=== PATIENT | female | born 1960 | race Caucasian/White ===

== ENCOUNTER 2024-09-03 01:23 | Emergency (ER) | payer MEDICARE, SELFPAY ==
[2024-09-03 01:26] VITALS: BP 126/86; PULSE 82; RESP 16; TEMP 35.6; O2SAT 95; BMI 27.5
--- NOTE | 2024-09-03 01:38 | ED.GENADULT ---
HPI - General Adult General Chief complaint: Shortness of Breath/Dyspnea Stated complaint: poss pneumonia or bronchitis Time Seen by Provider: 09/03/24 01:32 Source: patient Mode of arrival: ambulatory Limitations: no limitations History of Present Illness HPI narrative: 64-year-old female, history of tobacco use disorder current smoker, presents today with cough. Symptoms have been going on for about a week. She has an appointment a day from now in the clinic, but woke up from her sleep with a coughing fit and felt short of breath. Patient does use an inhaler as needed. States that when inhaler will last her whole year. Unclear if she has had diagnosis of asthma or COPD. She denies fevers, changes in her appetite. She has no chest pain. Cough is dry and not productive. Normal energy level throughout the day. She does state that the coughing makes her feel short of breath. Related Data Previous Rx's ?Medication ?Instructions ?Recorded albuterol sulfate 90 mcg/actuation 1 inh inhalation QID PRN shortness 09/03/24 aerosol inhaler of breath or wheezing #8.5 grams azithromycin 250 mg tablet 500 mg PO DIRECTED #6 tabs 09/03/24 prednisone 20 mg tablet 40 mg (2 x 20 mg) PO DAILY 3 days 09/03/24 #6 tabs Allergies Allergy/AdvReac Type Severity Reaction Status Date / Time No Known Drug Allergies Allergy Verified 09/03/24 01:30 Review of Systems Status of ROS: Reports: 10 or more systems reviewed and unremarkable except as noted in History and below [facility] Social History service: No Exam Narrative: Exam Narrative: Well-nourished well-developed patient in no acute distress. Alert and oriented. Answers questions appropriately. Mood and affect are appropriate. Thoughts are goal oriented and rational. No tangential or magical thinking noted. Patient speaks in full sentences without needing to catch Her breath. she is a bit congested. Smells strongly of tobacco. HEENT: Normocephalic atraumatic. Pupils are equally round reactive to light. Extraocular muscles are intact. Conjunctivae are moist without any icterus noted. Moist mucous membranes. Posterior pharynx is normal. Neck is soft without any lymphadenopathy or thyromegaly. No masses are appreciated. Cardiovascular: Heart is regular rate and rhythm S1 and S2 are present without any murmurs. Lungs: Very mild wheezing, right greater than the left. No crackles, rales or rhonchi are appreciated. She takes deep breaths without discomfort. Abdomen: Soft and nontender . Extremities: Bilateral lower extremities are without edema. Skin: Well perfused without any obvious rashes. Const: Vital Signs, click to edit/add: Vital Signs - 24 hr 09/03/24 01:26 Temperature 96.0 F L Pulse Rate [Left P ulse Oximeter] 82 Respiratory Rate 16 Blood Pressure [Ri ght Upper Arm] 126/86 Pulse Oximetry 95 Oxygen Delivery Me thod Room Air Course Course ED Course: Patient received a DuoNeb while she was here with symptom improvement Vital Signs Vital signs: Initial Vital Signs Temperature 96.0 F L 09/03/24 01:26 Temperature Source Temporal Artery Scan 09/03/24 01:26 Pulse Rate 82 09/03/24 01:26 Pulse Rhythm Regular 09/03/24 01:26 Respiratory Rate 16 09/03/24 01:26 Blood Pressure 126/86 09/03/24 01:26 Blood Pressure Mean 99 09/03/24 01:26 Blood Pressure Position Sitting 09/03/24 01:26 Pulse Oximetry 95 09/03/24 01:26 Oxygen Delivery Method Room Air 09/03/24 01:26 Vital Signs Temperature 96.0 F L 09/03/24 01:26 Pulse Rate 82 09/03/24 01:26 Respiratory Rate 16 09/03/24 01:26 Blood Pressure 126/86 09/03/24 01:26 Pulse Oximetry 95 09/03/24 01:26 Oxygen Delivery Method Room Air 09/03/24 01:26 Temperature 96.0 F L 09/03/24 01:26 Pulse Rate 82 09/03/24 01:26 Respiratory Rate 16 09/03/24 01:26 Blood Pressure 126/86 09/03/24 01:26 Pulse Oximetry 95 09/03/24 01:26 Oxygen Delivery Method Room Air 09/03/24 01:26 Medical Decision Making MDM Narrative Medical decision making narrative: 64-year-old female, long-term tobacco use presenting with cough and wheezing. Patient will be sent home with an albuterol inhaler refill, prednisone and azithromycin. Recommend follow-up with primary care as scheduled On 09/04. Discharge Plan Discharge Clinical Impression: Cough, Bilateral wheezing Patient Disposition: Home, Self-Care Condition: Stable Additional Instructions: take all steroid as prescribed- Can take 1st dose after you bead picker in the clinic this morning. Your albuterol inhaler will also be filled. Lastly, your also be prescribed an antibiotic which you can start this coming morning. Recommend you keep your appointment that is already scheduled. Prescriptions: New prednisone 20 mg tablet 40 mg PO DAILY 3 Days Qty: 6 0RF azithromycin 250 mg tablet 500 mg PO DIRECTED Qty: 6 0RF Taper: Z-WADE 500 mg Q24H for 1 Day and 0 Hour 250 mg Q24H for 4 Days and 0 Hour Rx Instructions: For 250 mg dose pack: take 500 mg today (day 1), then 250 mg for 4 days (days 2-5) albuterol sulfate 90 mcg/actuation HFA aerosol inhaler 1 inh inhalation QID PRN (Reason: shortness of breath or wheezing) Qty: 8.5 0RF Follow Up/Referrals: Dima Jimenez, MEDARDO [Primary Care Provider] - Stand Alone Forms: [employer] Info Instructions
[2024-09-03] MEDS: predniSONE 10 MG TABLET 50 MG PO (01:55)
[2024-09-03] MEDS: IPRAT-ALBUT 0.5-2.5 MG/3 ML NEB 1 NEB IH (01:56)
[2024-09-03 02:14] LABS: PCR FLU A Negative PCR FLU A (Negative); PCR FLU B Negative PCR FLU B (Negative); PCR RSV Negative PCR RSV (Negative); SARS PCR* Negative SARS-CoV-2 (Negative)
[2024-09-03 02:31] VITALS: PULSE 90; RESP 20; O2SAT 97
== END 2024-09-03 02:33 | disposition home or self-care (01) ==
LOC: ED 01:56
PROVIDERS: Emergency Provider Family Medicine; PCP Family Medicine
DX: R06.2 Wheezing (principal)
CPT/HCPCS: 87631; 99283; 99284; J7512

== ENCOUNTER 2024-09-27 09:29 | Emergency (ER) | payer MEDICARE, SELFPAY ==
--- OUTSIDE RECORDS SUMMARY | 2024-09-27 09:31 | XMS_ITS | Clinical Summary ---
Author Organization [employer] [facility] Address [place], [place] [address] Care Team Providers Care Plate Washer Name Role Phone JamestelElieser MD Primary Care Provider + Allergies Active Allergy Reactions Criticality Noted Date Comments Amoxicillin Dizziness 11/03/2021 Reported per patient (see enc dated 11/03/21) Medications MULTIVITAMIN TAB take 1 tablet by oral route once daily with food 0 9 Active guaFENesin SR (MUCINEX) 1,200 mg [id number] :Bronchitis Take 1 tablet by mouth every 12 hours if needed for Expectoration. 14 tablet 7 Active albuterol HFA (PRO-AIR; VENTOLIN; PROVENTIL) 90 mcg/actuation inhalerIndicati ons:Wheeze Inhale 2 Puffs by mouth every 4 hours if needed for Shortness Of Breath. 1 Each 1 4 Active aspirin (ECOTRIN) 81 mg enteric coated tablet Take 81 mg by mouth once daily with a meal. Active nicotine 21 mg/24 hr (NICODERM; HABITROL) 21 mg/24 hr patchIndication s:Encounter for smoking cessation counseling Apply 1 Patch on dry, clean, hairless skin once daily. 14 Patch 3 4 Active nicotine 14 mg/24 hr (NICODERM; HABITROL) 14 mg/24 hr patchIndication s:Tobacco use disorder Apply 1 Patch on dry, clean, hairless skin once daily. 14 Patch 3 4 Active Active Problems Problem Noted Date Diagnosed Date Bronchitis 05/25/2017 Numbness and tingling in both hands 05/21/2017 Edema 05/21/2017 Overweight 05/21/2017 Hyperlipidemia LDL goal < 130 12/25/2011 Screen for colon cancer 10/28/2010 Overview (10/28/2010): Colonoscopy 09/2010 normal repeat in 10 years LUMBAGO 07/01/2001 RASH, OTH NONSPECIFIC SKIN ERUPTION 10/03/2000 COUGH 10/03/2000 CYST, SEBACEOUS 10/03/2000 TOBACCO USE 01/12/2000 Encounters Date Type Department Care Team Description 09/27/2024 Nurse Triage [facility] [address] [place] [address] Elieser Nielsen MD Breathing Problem 09/22/2024 Telephone [facility] [address] [place] [address] Elieser Nielsen MD FYI (Medicare Wellness Visit) 09/18/2024 Telephone [facility] [address] [place] [address] Elieser Nielsen MD Medication Management (Nicotine Patches ) 09/04/2024 Telephone [facility] [address] [place] [address] Elieser Nielsen MD Questions (Nicotine patch ) 07/02/2024 1:15 PM CDT Office Visit [facility] [address] [place] [address] Elieser Nielsen MD Concerns (Small bumps in between brows/Wants urethra stretched out); Immunization/Injectio n 07/02/2024 Travel from Last 3 Months Immunizations Name Administration Dates Next Due AMB Influenza, IIV3 (Age >=3 years)(Flu Clinic Only) 06/17/2013,06/10/2012 AMB Influenza, IIV4 PF (=>6 mos Flulaval,Fluzone Fluarix)(Flu Clinic Only) 06/25/2015,06/17/2014 Influenza, IIV3 (Age >=3 years) 07/26/2021,06/23 Influenza, IIV4 06/12/2023,,06/10/2019,2017 Influenza, IIV4 (=>6mos) MDV 05/21/2017 Influenza, Inactivated IIV3 (Age 65+ Years) Preserv Free 07/02/2024 Influenza,CCIIV4 PRESERV FREE 07/24/2022 Pneumococcal Conj 20-valent (Prevnar 20) 08/23/2022 Pneumococcal Poly,23-Valent (Pneumovax) 05/21/2017 Td (Age >=7 Years) 06/02/2005 Tdap 02/03/2016 Zoster (Shingrix-RZV, recombinant) 10/16/2018, Zoster (Zostavax-ZVL, live) 04/13/2015 Family History Medical History Relation Name Comments Alcoholism Father Cancer Father lung cancer, sm oker Cirrhosis Father Other Mother car accident Cancer-breast Paternal Aunt age 36 Other Sister 1 lupus, fibromya lgia Alcoholism Sister 2 Alcoholism Sister 3 Relation Name Status Comments Father (Age 56) Mother (Age 21) car accide nt Paternal Aunt Sister 1 Sister 2 Sister 3 Social History Tobacco Use Types Packs/Day Years Used Date Smoking Tobacco: Every Day Cigarettes 1 43 Started: 08/23/1973; Last attempted to quit: 08/23/2016 Smokeless Tobacco: Never Tobacco Cessation:Ready to Q uit: No; Counseling Given: Yes Comments:1 ppd. Alcohol Use Standard Drinks/Week Comments No 0 (1 standard drink = 0.6 oz pur e alcohol) Alcoholic Drinks/day: 0 [facility] Utilities Answer Date Recorded Do you have trouble paying f or utilities (for example, heat, electricity, water, phone)? Yes 07/02/2024 PHQ-2 Answer Date Recorded PHQ-2 TOTAL SCORE 0 07/02/2024 Social Connections Answer Date Recorded Do you often feel lonely or isolated from those around you? 0 07/02/2024 Financial Resource Strain Answer Date R ecorded Difficulty of Paying Living Expenses 3 07/02/2024 Difficulty of Paying Living Expenses Not on file 07/02/2024 Food Insecurity Answer Date Recorded Do you worry your food will run out before you are able to buy more? 1 07/02/2024 Transportation Needs Answer Date Record ed Does lack of transportation keep you from medica l appointments? 1 07/02/2024 Does lack of transportation keep you from work, meetings or getting things that you need? 1 07/02/2024 Housing Stability Answer Date Recorded What is your housing situation today? 1 07/02/2024 Comments No Sex and Gender Information Value Date Recorded Sex Assigned at Not on file Legal Sex Female 5:21 AM [employer] WORK[employer] Gender Identity Not on file Sexual Orientation Not on file Occupation Industry Job Start Date Job End Date [employer] Not on file Not on file Not on file Obstetrics History Last Filed Vital Signs Vital Sign Reading Time Taken Comments Blood Pressure 139/80 07/02/2024 1:13 PM CDT Pulse 100 07/02/2024 1:13 PM CDT Temperature 37.1 C (98.8 F) 09/20/2018 10:44 AM [employer] WORK[employer] Respiratory Rate 20 05/25/2017 8:11 AM CDT Oxygen Saturation 97% 07/02/2024 1:13 PM CDT Inhaled Oxygen Concentration - - Weight 73.2 kg (161 lb 6.4 oz) 07/02/2024 1:13 P M CDT Height 158.7 cm (5' 2.48) 07/02/2024 1:13 PM CD T Body Mass Index 29.07 07/02/2024 1:13 PM CDT Plan of Treatment Upcoming Encounters Date Type Department Care Team (Late st Contact Info) Description 11/27/2024 12:30 PM [employer] WORK[employer] Office Visit [facility] [address] [place] [address] Wagner James MD [address] [place] [address] Health Maintenance Due Date Last Done Comments Low Dose CT (for lung CA) ag e 50-80 2009 Mammogram for age 45-75 06/10/2020 06/10/20, 05/20/2018, 05/18/2017, Additional history exists Colonoscopy through age 75 10/28/2020 10/28/2010, DEXA/DXA scan for age 65+ 2024 Medicare Wellness for age 65+ 2024 COVID-19 vaccine series (2023- season) 2024 BMI (ht and wt on same day) for age 18+ 07/02/2025 07/02/2024, 06/12/2023, 08/23/2022, Additional history exists Depression screening for age 12+ 07/02/2025 07/02/2024, 08/23/2022, 06/26/2018, Additional history exists Tetanus booster 02/02/2026 02/03/2016, 06/02/2005 Lipids for age 45-75 08/23/2027 08/23/2022, 06/26/2018, 05/21/2017, Additional history exists RSV vaccine for adults or (1 - 1-dose 75+ series) 2034 Tdap Completed 02/03/2016 Hepatitis C screening for ag e 18-79 Completed 06/26/2018 Zoster (shingles) series for age 50+ Completed 10/16/2018, 06/24/2018, 04/13/2015 HIV for age 15-65 Completed 08/23/2022 Pneumococcal series for age 50+ Completed , 05/21/2017 Influenza for age 65+ Completed 07/02/2024 , 06/12/2023, 07/24/2022, Additional history exists Procedures Procedure Name Priority Date/Time Associated Diagnosis Comments ANTI HIV 1/2 Routine 08/23/2022 9:34 AM [employer] WORKER Screening for HIV (human immunodeficiency virus) LIPID PANEL W REFLEX MEASURED LDL Routine 08/23/2022 9:34 AM [employer] FI[employer] WORKER Lipid screening XR MAMMO BILAT SCREENING Routine 06/10/2019 10:06 AM CDT Visit for screening mammogram ANTI HCV Routine 06/26/2018 7:40 AM CDT Need for hepatitis C screening test from Last 3 Months or Most Recently Relevant to Health Maintenance Results * (ABNORMAL) LIPID PANEL W REFLEX MEASURED LDL (08/23/2022 9:34 AM [employer] FIELD WORKER) CHOLESTEROL,TOTAL 271(H) 100 - 199 mg/dL 08/25/2022 1:42 AM AREA FIELD WORKER [facility] TRIGLYCERIDES 203(H) <150 mg/dL 08/25/2022 1:42 AM AREA FIELD WORKER [facility] HDL CHOLESTEROL 55 >40 mg/dL 2 1:42 AM AREA FIELD WORKER [facility] NON-HDL CHOLESTEROL 216(H) <145 mg/dl 08/25/2022 1:42 AM [employer] FIELD WORKER [facility] CHOL/HDL RATIO 4.93(H) <4.50 08/25/2022 1:42 AM [employer] FIELD WORKER [facility] LDL CHOLESTEROL 175(H) <=130 mg/dL 08/25/2022 1:42 AM ARE[employer] FIELD WORKER [facility] VLDL CHOLESTEROL 41(H) <=30 mg/dL 08/25/2022 1:42 AM [employer] FIELD WORKER [facility] PROVIDER ORDERED STATUS RANDOM 08/25/2022 1:42 AM [employer] FIELD WORKER [facility] Blood BLOOD SPECIMEN / Unknown Venipuncture / Unknown 08/23/2022 9:34 AM AREA FIELD WORKER 08/23/2022 9:35 AM [employer] FIELD WORKER Laly Bowles MD CHEMISTRY Final Result [facility] [address] [place] [address], [place] * ANTI HIV 1/2 [[id number]] (08/23/2022 9:34 AM AREA FIELD WORKER) HIV-1/HIV-2 ANTIBODY Non-Reacti ve Non-Reacti ve 08/25/2022 2:03 AM ARE[employer] FIELD WORKER [facility] Comment:HIV-1 p24 and HIV-1/ HIV-2 Ab not detected. Blood BLOOD SPECIMEN / Unknown Venipuncture / Unknown 08/23/2022 9:34 AM AREA FIELD WORKER 08/23/2022 9:35 AM [employer] FIELD WORKER Laly Bowles MD SEND OUTS Final Result [facility] [address] [place] [address], [place] * XR MAMMO BILAT SCREENING (06/10/2019 10:06 AM CDT) Anatomical Region Laterality Modality BREASTS, Breast Left, Breast Right Bilateral Mammography Impressions 06/10/2019 12:37 PM CDT There is no radiographic evidence for malignancy. Recommend annual mammograms. A lay language report of this examination will be provided to the patient. MAMMOGRAM ASSESSMENT: ACR 1 Negative Narrative 06/10/2019 12:37 PM CDT XR MAMMO BILAT SCREENING [[id number]] CLINICAL HISTORY: This is an asymptomatic 59 y.o. patient. INDICATION FOR EXAM: Mammogram Screening. TECHNIQUE: CC & MLO views were obtained. This digital study was evaluated with the assistance of Computer-Aided Detection. COMPARISON FILM: Yes 05/20/18 [facility] 05/18/17 [facility] FINDINGS: Mammographically, the breast tissue has scattered fibroglandular densities. There are no dominant masses, suspicious micro calcifications or areas of architectural distortion. Laly Bowles MD MAMMO Final Result * ANTI HCV (06/26/2018 7:40 AM CDT) HEPATITIS C ANTIBODY Non-React antonio Non-React antonio 06/26/2018 2:[address] [facility] Comment:Antibodies to HCV no t detected; does not exclude the possibility of exposure to HCV. Blood BLOOD SPECIMEN / Unknown Venipuncture / Unknown 06/26/2018 7:40 AM CDT 06/26/2018 8:18 AM CDT Laly Bowles MD SEND OUTS Final Result [facility] [address] [place] [address], [place] from Last 3 Months or Most Recently Relevant to Health Maintenance Insurance [facility] MR Care Teams Plate Washer Relationship Specialty Start Date End Date Votel, Elieser Vaughan MD [address] [place] [address] PCP - General Family Practice 09/04/24
[2024-09-27 09:44] VITALS: BP 124/76; PULSE 89; TEMP 36.7; O2SAT 95; BMI 30.1
--- NOTE | 2024-09-27 09:52 | ED.GENADULT ---
HPI - General Adult General Time Seen by Provider: 10:36 Date Seen: 09/27/24 Chief complaint: Shortness of Breath/Dyspnea Stated complaint: Chest pressure, sob Time Seen by Provider: 09/27/24 09:51 Source: patient, RN notes reviewed and old records reviewed Mode of arrival: ambulatory Limitations: no limitations History of Present Illness HPI narrative: This 64-year-old female is coming in with concern of worsening respiratory symptoms. She is feeling tightness and wheezing in her chest again. This is not chest pain, does not feel like this is underlying cardiac pain at all. She is started coughing again. She was in the ER on 09/03/2020 for and was given a Z-Kevin and prednisone. She did feel better after that. She is starting to feel more short of breath about a week ago, is using an albuterol inhaler. She quit smoking after this last visit on September 03, had smoked for 51 years. There are no fevers. Did review that ED note, patient was wheezy, did receive a DuoNeb and did feel better after that. Related Data Previous Rx's ?Medication ?Instructions ?Recorded albuterol sulfate 90 mcg/actuation 1 inh inhalation QID PRN shortness 09/03/24 aerosol inhaler of breath or wheezing #8.5 grams ipratropium 20 mcg-albuterol 100 1 puff inhalation QID #4 grams 09/27/24 mcg/actuation mist for inhalation (Combivent Respimat) prednisone 20 mg tablet 20 mg PO BID #14 tabs 09/27/24 Allergies Allergy/AdvReac Type Severity Reaction Status Date / Time No Known Drug Allergies Allergy Verified 09/03/24 01:30 Review of Systems Status of ROS: Reports: 6 or more systems reviewed and unremarkable except as noted in History and below PFSH PFS Social History Smoking Status: Former smoker service: No Exam Const: Vital Signs, click to edit/add: Vital Signs - 24 hr 09/27/24 09:44 Temperature 98.1 F Pulse Rate [Pulse Oximeter] 89 Blood Pressure [Ri ght Upper Arm] 124/76 Pulse Oximetry 95 Oxygen Delivery Me thod Room Air Jacquelyn is a 64-year-old female that is alert, interactive, no apparent distress. She can speak in complete sentences, speech is normal, no hoarseness. Sclera clear, conjugate gaze. Neck is supple, no adenopathy. Cough does sound harsh. Lungs with diminished breath sounds, prolonged expiratory phase. Some occasional end-expiratory wheezing heard at the bases. CV regular rate and rhythm, no murmur, normal S1-S2, no S3-S4. Documenting provider has reviewed patient's vital signs: yes Course Course ED Course: Will obtain a chest x-ray just to ensure no underlying pneumonia and have a basic look at the architecture via chest x-ray on this patient. Nursing staff did get an EKG on arrival, this looks normal. Have reviewed with this patient given her smoking history and presentation, she likely has underlying COPD but ultimately needs formal pulmonary function testing to diagnose this. The pulmonary function testing is not something that is done in the ER, she is absolutely going to need to follow up outpatient. Reevaluation(s) Time of Reevaluation #1: 11:30 Reevaluation #1: Have spent time trying to discuss with patient that she does not have any evidence of infection in her lungs, chest x-ray is normal, provided her a copy of the report. She seems to be struggling with the concept that I suspect she has underlying damage from smoking which we would term emphysema which is 1 of the diagnoses in a category called COPD. We discussed long-term smoker's and what can happen with the lungs. We also reviewed that when people quit smoking, can experience more coughing and sputum production as the cilia in the respiratory tree start functioning. My assumption is that she probably has a component of emphysema but cannot to be diagnosed with out pulmonary function testing. I do think she has some underlying irritation from the recent viral issue, will prescribe her another course of steroids but she does not need antibiotics. I do think that she should go on a Combivent inhaler and then can use her albuterol p.r.n.. She should follow up outpatient to get scheduled for pulmonary function testing. Will have respiratory therapy chat with her briefly as well. Re-evaluation of her lungs reveals improved aeration, no wheezing. Vital Signs Vital signs: Initial Vital Signs Temperature 98.1 F 09/27/24 09:44 Temperature Source Temporal Artery Scan 09/27/24 09:44 Pulse Rate 89 09/27/24 09:44 Blood Pressure 124/76 09/27/24 09:44 Blood Pressure Mean 92 09/27/24 09:44 Blood Pressure Position Sitting 09/27/24 09:44 Pulse Oximetry 95 09/27/24 09:44 Oxygen Delivery Method Room Air 09/27/24 09:44 Vital Signs Temperature 98.1 F 09/27/24 09:44 Pulse Rate 89 09/27/24 09:44 Blood Pressure 124/76 09/27/24 09:44 Pulse Oximetry 95 09/27/24 09:44 Oxygen Delivery Method Room Air 09/27/24 09:44 Temperature 98.1 F 09/27/24 09:44 Pulse Rate 89 09/27/24 09:44 Blood Pressure 124/76 09/27/24 09:44 Pulse Oximetry 95 09/27/24 09:44 Oxygen Delivery Method Room Air 09/27/24 09:44 Medications Administered Medications: Discontinued Medications Generic Name Dose Route Start Last Admin Trade Name Freq PRN Reason Stop Dose Admin Albuterol/Ipratropium 1 neb 09/27/24 10:41 09/27/24 10:51 Iprat-Albut 0.5-2.5 Mg/3 Ml Neb 09/27/24 10:42 1 neb ONCE ONE Administration Medical Decision Making Imaging Data Chest x-ray: Attestation: I have reviewed the pertinent imaging results. My impression: No acute pathology on my preliminary review. Radiologist's impression: Patient: JACQUELYN CHILD Facility:?[facility] Patient ID:?[id number] Site Patient ID:?[id number]. Site :?[id number] Study:?XRay-Chest PCXR-09/27/2024 10:02:03 AM Ordering Physician:Dale Salazar Final Report: Indication: : Shortness of breath TECHNIQUE: Single-view chest. FINDINGS: The lungs are clear. The heart, mediastinum and pulmonary vessels are of normal size. There is no evidence of pleural disease. IMPRESSION: Negative chest. Dictated by Jing Gardner MD @ 09/27/2024 10:45:32 AM (Electronic Signature) ECG Data Attestation: I personally reviewed and interpreted this ECG as follows: (Sinus rhythm, 78 beats per minute, some artifact in V4. Q-waves V1 V2, flipped T-waves V1 only, no ST segment changes.) Prior ECG tracings: not available for review Discharge Plan Discharge Clinical Impression: Wheezing Cough Qualifiers: Cough type: acute Qualified Code(s): R05.1 - Acute cough Patient Disposition: Home, Self-Care Condition: Stable Instructions: How to Use a Metered-Dose Inhaler (ED) Additional Instructions: Take prednisone as prescribed, this will help settle any inflammation in the lungs. There is no evidence of infection requiring antibiotics. Will start you on Combivent inhaler, this has 2 medicines in it and can help improve breathing with opening the airways. Can still use your albuterol inhaler if needed in between. You do need to follow-up with your primary care provider within the next few weeks for recheck, highly encourage formal pulmonary function test to be scheduled. Activity Level: Activity as Tolerated Prescriptions: New prednisone 20 mg tablet 20 mg PO BID Qty: 14 0RF Combivent Respimat 20-100 mcg/actuation mist 1 puff inhalation QID Qty: 4 0RF Rx Instructions: space evenly during waking hours No Action albuterol sulfate 90 mcg/actuation HFA aerosol inhaler 1 inh inhalation QID PRN (Reason: shortness of breath or wheezing) Qty: 8.5 0RF Follow Up/Referrals: Elieser Nielsen MD [Primary Care Provider] - Stand Alone Forms: [employer] Info Instructions
--- NOTE | 2024-09-27 09:55 | CRLHL7_ITS ---
For Patients: As a result of the Century Cures Act, medical imaging exams and procedure reports are released immediately into your electronic medical record. You may view this report before your referring provider. If you have questions, please contact your health care provider. Indication: : Shortness of breath TECHNIQUE: Single-view chest. FINDINGS: The lungs are clear. The heart, mediastinum and pulmonary vessels are of normal size. There is no evidence of pleural disease. IMPRESSION: Negative chest. Dictated by Jing Gardner MD @ 09/27/2024 10:45:32 AM (Electronically Signed)
[2024-09-27] MEDS: IPRAT-ALBUT 0.5-2.5 MG/3 ML NEB 1 NEB IH (10:51)
--- OUTSIDE RECORDS SUMMARY | 2024-09-27 10:51 | XMS_ITS | Clinical Summary ---
Author Organization [employer] Address [place], [place] [address] Care Team Providers Care Employment Clerk Name Role Phone JamestelElieser MD Primary Care Provider + Allergies Active Allergy Reactions Criticality Noted Date Comments Amoxicillin Dizziness 11/03/2021 Reported per patient (see enc dated 11/03/21) Medications MULTIVITAMIN TAB take 1 tablet by oral route once daily with food 0 9 Active guaFENesin SR (MUCINEX) 1,200 mg [id number] :Bronchitis Take 1 tablet by mouth every [...] Department Care Team Description 09/27/2024 Nurse Triage [facility] [address] [place] [address] Elieser Nielsen MD Breathing Problem 09/22/2024 Telephone [facility] [address] [place] [address] Elieser Nielsen MD FYI (Medicare Wellness Visit) 09/18/2024 Telephone [facility] [address] [place] [address] Elieser Nielsen MD Medication Management (Nicotine Patches ) 09/04/2024 Telephone [facility] [address] [place] [address] Elieser Nielsen MD Questions (Nicotine patch ) 07/02/2024 1:15 PM CDT Office Visit [facility] [address] [place] [address] Elieser Nielsen MD Concerns (Small bumps in [...] oz pur e alcohol) Alcoholic Drinks/day: 0 [facility] Utilities Answer Date Recorded Do you [...] on file Legal Sex Female 5:21 AM PRINT LINE OPERATOR Gender Identity Not on file Sexual Orientation Not on file Occupation Industry Job Start Date Job End Date [employer] Not on file Not on file Not on file Obstetrics History Last Filed Vital Signs Vital Sign Reading Time Taken Comments Blood Pressure 139/80 07/02/2024 1:13 PM CDT Pulse 100 07/02/2024 1:13 PM CDT Temperature 37.1 C (98.8 F) 09/20/2018 10:44 AM PRINT LINE OPERATOR Respiratory Rate 20 05/25/2017 8:11 AM CDT [...] st Contact Info) Description 11/27/2024 12:30 PM PRINT LINE OPERATOR Office Visit [facility] [address] [place] [address] Wagner James MD [address] [place] [address] Health Maintenance Due Date Last Done Comments [...] ANTI HIV 1/2 Routine 08/23/2022 9:34 AM PRINT LINE OPERATOR Screening for HIV (human immunodeficiency virus) LIPID PANEL W REFLEX MEASURED LDL Routine 08/23/2022 9:34 AM PRINT LINE OPERATOR Lipid screening XR MAMMO BILAT SCREENING Routine 06/10/2019 10:06 AM CDT Visit for screening mammogram ANTI HCV Routine 06/26/2018 7:40 AM CDT Need for hepatitis C screening test from Last 3 Months or Most Recently Relevant to Health Maintenance Results * (ABNORMAL) LIPID PANEL W REFLEX MEASURED LDL (08/23/2022 9:34 AM PRINT LINE OPERATOR) CHOLESTEROL,TOTAL 271(H) 100 - 199 mg/dL 08/25/2022 1:42 AM PRINT LINE OPERATOR [facility] TRAL LAB[facility]ORY TRIGLYCERIDES 203(H) <150 mg/dL 08/25/2022 1:42 AM PRINT LINE OPERATOR [facility] HDL CHOLESTEROL 55 >40 mg/dL 2 1:42 AM PRINT LINE OPERATOR [facility] NON-HDL CHOLESTEROL 216(H) <145 mg/dl 08/25/2022 1:42 AM PRINT LINE OPERATOR [facility] CHOL/HDL RATIO 4.93(H) <4.50 08/25/2022 1:42 AM PRINT LINE OPERATOR [facility] LDL CHOLESTEROL 175(H) <=130 mg/dL 08/25/2022 1:42 AM PRINT LINE OPERATOR [facility] VLDL CHOLESTEROL 41(H) <=30 mg/dL 08/25/2022 1:42 AM PRINT LINE OPERATOR [facility] TR[facility] PROVIDER ORDERED STATUS RANDOM 08/25/2022 1:42 AM PRINT LINE OPERATOR [facility] Blood BLOOD SPECIMEN / Unknown Venipuncture / Unknown 08/23/2022 9:34 AM PRINT LINE OPERATOR 08/23/2022 9:35 AM PRINT LINE OPERATOR Laly Bowles MD CHEMISTRY Final Result [facility] [address] [place] [address], [place] * ANTI HIV 1/2 [[id number]] (08/23/2022 9:34 AM PRINT LINE OPERATOR) HIV-1/HIV-2 ANTIBODY Non-Reacti ve Non-Reacti ve 08/25/2022 2:03 AM PRINT LINE OPERATOR [facility] Comment:HIV-1 p24 and HIV-1/ HIV-2 Ab not detected. Blood BLOOD SPECIMEN / Unknown Venipuncture / Unknown 08/23/2022 9:34 AM PRINT LINE OPERATOR 08/23/2022 9:35 AM PRINT LINE OPERATOR Laly Bowles MD SEND OUTS Final Result [facility] [address] [place] [address], [place] * XR MAMMO BILAT SCREENING (06/10/2019 10:06 AM CDT) Anatomical Region Laterality Modality BREASTS, Breast Left, Breast Right Bilateral Mammography Impressions 06/10/2019 12:37 PM CDT There is no radiographic evidence for malignancy. Recommend annual mammograms. A lay language report of this examination will be provided to the patient. MAMMOGRAM ASSESSMENT: ACR 1 Negative Narrative 06/10/2019 12:37 PM CDT XR MAMMO BILAT SCREENING [[id number]] CLINICAL HISTORY: This is an asymptomatic 59 y.o. patient. INDICATION FOR EXAM: Mammogram Screening. TECHNIQUE: CC & MLO views were obtained. This digital study was evaluated with the assistance of Computer-Aided Detection. COMPARISON FILM: Yes 05/20/18 [facility] 05/18/17 [facility] FINDINGS: Mammographically, the breast tissue has scattered fibroglandular densities. There are no dominant masses, suspicious micro calcifications or areas of architectural distortion. Laly Bowles MD MAMMO Final Result * ANTI HCV (06/26/2018 7:40 AM CDT) HEPATITIS C ANTIBODY Non-React antonio Non-React antonio 06/26/2018 2:06 PM CDT [facility] Comment:Antibodies to HCV no t detected; does not exclude the possibility of exposure to HCV. Blood BLOOD SPECIMEN / Unknown Venipuncture / Unknown 06/26/2018 7:40 AM CDT 06/26/2018 8:18 AM CDT Laly Bowles MD SEND OUTS Final Result [facility] [address] [place] [address], [place] from Last 3 Months or Most Recently Relevant to Health Maintenance Insurance [facility] MR Care Teams Employment Clerk Relationship Specialty Start Date End Date Votel, Elieser Vaughan MD [address] [place] [address] PCP - General Family Practice 09/04/24
== END 2024-09-27 11:56 | disposition home or self-care (01) ==
PROVIDERS: Emergency Provider Family Medicine; PCP Family Medicine
DX: R05.1 Acute cough (principal)
CPT/HCPCS: 71045; 93005; 99284

== ENCOUNTER 2024-10-14 15:53 | Emergency (ER) | payer MEDICARE, SELFPAY ==
[2024-10-14 15:56] VITALS: BP 170/102; PULSE 88; RESP 20; TEMP 36.2; O2SAT 96; BMI 29.2
--- OUTSIDE RECORDS SUMMARY | 2024-10-14 15:56 | XMS_ITS | Clinical Summary ---
Author Organization [employer] Address [place], [place] [address] Care Team Providers Care Neurology Tech Name Role Phone VotelElieser MD Primary Care Provider + Allergies Active Allergy Reactions Criticality Noted Date Comments Amoxicillin Dizziness 11/03/2021 Reported per patient (see enc dated 11/03/21) Medications MULTIVITAMIN TAB take 1 tablet by oral route once daily with food 0 9 Active albuterol HFA (PRO-AIR; VENTOLIN; PROVENTIL) 90 mcg/actuation inhalerIndicati ons:Wheeze Inhale 2 Puffs by mouth every 4 hours if needed for Shortness Of Breath. 1 Each 1 4 Active aspirin (ECOTRIN) 81 mg enteric coated tablet Take 81 mg by mouth once daily with a meal. Active combivent respimat 20-100 mcg/actuation inhaler 5 Active guaFENesin SR (MUCINEX) 1,200 mg [id number] :Bronchitis Take 1 tablet by mouth every 12 hours if needed for Expectoration . 14 tablet 7 10/08/19 25 Discontinu ed(*Med complete/R egimen complete/L evel of care change) nicotine 21 mg/24 hr (NICODERM; HABITROL) 21 mg/24 hr patchIndication s:Encounter for smoking cessation counseling Apply 1 Patch on dry, clean, hairless skin once daily. 14 Patch 3 4 10/08/19 25 Discontinu ed(*Med complete/R egimen complete/L evel of care change) nicotine 14 mg/24 hr (NICODERM; HABITROL) 14 mg/24 hr patchIndication s:Tobacco use disorder Apply 1 Patch on dry, clean, hairless skin once daily. 14 Patch 3 4 10/08/19 25 Discontinu ed(*Med complete/R egimen complete/L evel of care change) Active Problems Problem Noted Date Diagnosed Date Bronchitis 05/25/2017 Numbness and tingling in both hands 05/21/2017 Edema 05/21/2017 Overweight 05/21/2017 Hyperlipidemia LDL goal < 130 12/25/2011 Screen for colon cancer 10/28/2010 Overview (10/28/2010): Colonoscopy 09/2010 normal repeat in 10 years LUMBAGO 07/01/2001 RASH, OTH NONSPECIFIC SKIN ERUPTION 10/03/2000 COUGH 10/03/2000 CYST, SEBACEOUS 10/03/2000 TOBACCO USE 01/12/2000 Encounters Date Type Department Care Team Description 10/14/[address] [facility] [address] [place] [address] Elieser Nielsen MD requesting clal (Shortness of breath and chest tightness with rest or exertion. Wants something RX) 10/08/2024 12:50 PM EXPORT DOCUMENTS CLERK Office Visit [facility] [address] [place] [address] Elieser Nielsen MD ER Follow up ([place], 09/27/24, SOB, cough) 10/08/2024 Travel 09/27/2024 Orders Only [facility] Scanner 1 scan: (1-Ord) MANI, XR CHEST 1V PORTABLE, 09/27/2024 09/27/[address] [facility] [address] [place] [address] Elieser Nielsen MD Breathing Problem 09/22/2024 Telephone [place] [address] [place] [address] Elieser Nielsen MD FYI (Medicare Wellness Visit) 09/18/[address] [facility] [address] [place] [address] Elieser Nielsen MD Medication Management (Nicotine Patches ) 09/04/[address] [place] [address] Votel, Elieser Vaughan MD Questions (Nicotine patch ) from Last 3 Months Immunizations Name Administration Dates Next Due AMB Influenza, IIV3 (Age >=3 years)(Flu Clinic Only) 06/17/2013,06/10/2012 AMB Influenza, IIV4 PF (=>6 mos Flulaval,Fluzone Fluarix)(Flu Clinic Only) 06/25/2015,06/17/2014 Influenza, IIV3 (Age >=3 years) 07/26/2021,06/23 Influenza, IIV4 06/12/2023, 0,06/10/2019,2017 Influenza, IIV4 (=>6mos) MDV 05/21/2017 Influenza, Inactivated [...] Types Packs/Day Years Used Date Smoking Tobacco: Former Cigarettes 1 43 1 10/23/1972 - 08/23/2016 Smokeless Tobacco: Never Tobacco Cessation:Counseling Given: Yes Comments:1 ppd. Alcohol Use Standard Drinks/Week Comments No 0 (1 standard drink = 0.6 oz pur e alcohol) Alcoholic Drinks/day: 0 PHQ-2 Answer Date Recorded PHQ-2 TOTAL SCORE [...] is your housing situation today? 1 07/02/2024 Utilities Answer Date Recorded Do you have trouble paying f or utilities (for example, heat, electricity, water, phone)? 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 Not on file Not on file Obstetrics History Last Filed Vital Signs Vital Sign Reading Time Taken Comments Blood Pressure 113/72 10/08/2024 12:46 PM EXPORT DOCUMENTS CLERK Pulse 100 10/08/2024 12:46 PM EXPORT DOCUMENTS CLERK Temperature 36.9 C (98.4 F) 10/08/2024 12:46 PM EXPORT DOCUMENTS CLERK Respiratory Rate 20 05/25/2017 8:11 AM CDT Oxygen Saturation 97% 10/08/2024 12:46 PM EXPORT DOCUMENTS CLERK Inhaled Oxygen Concentration - - Weight 77.2 kg (170 lb 1.6 oz) 10/08/2024 12:46 PM EXPORT DOCUMENTS CLERK Height 158.5 cm (5' 2.4) 10/08/2024 12:46 PM CS T Body Mass Index 30.71 10/08/2024 12:46 PM EXPORT DOCUMENTS CLERK Plan of Treatment Upcoming Encounters Date Type Department Care Team (Late st Contact Info) Description 11/27/2024 12:30 PM EXPORT DOCUMENTS CLERK Office Visit [facility] [address] [facility] [place] [phone] Wagner James MD [facility] [place] [address] 11/27/2024 2:00 PM EXPORT DOCUMENTS CLERK Appointment [facility] [address] [place] [address] Health Maintenance Due Date Last Done Comments Low Dose CT (for lung CA) age 50-80 2009 Colonoscopy through age 75 10/28/2020 10/28/2010, DEXA/DXA scan for age 65+ 2024 COVID-19 vaccine series ( season) 2024 Depression screening for age 12+ 07/02/2025 07/02/2024, 08/23/2022, 06/26/2018, Additional history exists BMI (ht and wt on same day) for age 18+ 10/08/2025 10/08/2024, 07/02/2024, 06/12/2023, Additional history exists Tetanus booster 02/02/2026 02/03/2016, 06/02/2005 Mammogram for age 45-75 10/08/2026 06/10/20 19, 05/20/2018, 05/18/2017, Additional history exists Postponed from 06/10/2020 (Patient discretion) Medicare Wellness for age 65+ 10/08/2026 Postponed from 2024 (Patient discretion) Lipids for age 45-75 08/23/2027 08/23/2022, 06/26/2018, 05/21/2017, Additional history exists RSV vaccine for adults or (1 - 1-dose 75+ series) 2034 Tdap Completed 02/03/2016 Hepatitis C screening for age 18-79 Completed 06/26/2018 Zoster (shingles) series for age 50+ Completed 10/16/2018, 06/24/2018, 04/13/2015 HIV for age 15-65 Completed 08/23/2022 Pneumococcal series for age 50+ Completed 08/23/2022, 05/21/2017 Influenza for age 65+ Completed 07/02/2024 , 06/12/2023, 07/24/2022, Additional history exists Procedures Procedure Name Priority Date/Time Associated Diagnosis Comments SCAN-RADIOLOGY REPORT 09/27/2024 12:00 AM EXPORT DOCUMENTS CLERK ANTI HIV 1/2 Routine 08/23/2022 9:34 AM EXPORT DOCUMENTS CLERK Screening for HIV (human immunodeficiency virus) LIPID PANEL W REFLEX MEASURED LDL Routine 08/23/2022 9:34 AM EXPORT DOCUMENTS CLERK Lipid screening XR MAMMO BILAT SCREENING Routine 06/10/2019 10:06 AM CDT Visit for screening mammogram ANTI HCV Routine 06/26/2018 7:40 AM CDT Need for hepatitis C screening test from Last 3 Months or Most Recently Relevant to Health Maintenance Results * SCAN-RADIOLOGY REPORT (09/27/2024 12:00 AM EXPORT DOCUMENTS CLERK) Anatomical Region Laterality Modality Other us Scanner OTHER Final Result * (ABNORMAL) LIPID PANEL W REFLEX MEASURED LDL (08/23/2022 9:34 AM EXPORT DOCUMENTS CLERK) CHOLESTEROL,TOTAL 271(H) 100 - 199 mg/dL 08/25/2022 1:42 AM EXPORT DOCUMENTS CLERK [email or web address] TRAL LABORATORY TRIGLYCERIDES 203(H) <150 mg/dL 08/25/2022 1:42 AM EXPORT DOCUMENTS CLERK [email or web address] TR[facility] HDL CHOLESTEROL 55 >40 mg/dL 1:42 AM EXPORT DOCUMENTS CLERK [facility] NON-HDL CHOLESTEROL 216(H) <145 mg/dl 08/25/2022 1:42 AM EXPORT DOCUMENTS CLERK [email or web address] CHOL/HDL RATIO 4.93(H) <4.50 08/25/2022 1:42 AM EXPORT DOCUMENTS CLERK [facility] LDL CHOLESTEROL 175(H) <=130 mg/dL 08/25/2022 1:42 AM EXPORT DOCUMENTS CLERK [facility] [employer] TR[facility] VLDL CHOLESTEROL 41(H) <=30 mg/dL 08/25/2022 1:42 AM EXPORT DOCUMENTS CLERK [facility] PROVIDER ORDERED STATUS RANDOM 08/25/2022 1:42 AM [facility] Blood BLOOD SPECIMEN / Unknown Venipuncture / Unknown 08/23/2022 9:34 AM EXPORT DOCUMENTS CLERK 08/23/2022 9:35 AM EXPORT DOCUMENTS CLERK Laly Bowles MD CHEMISTRY Final Result [facility] [address] [place] [address], [place] * ANTI HIV 1/2 [[id number]] (08/23/2022 9:34 AM EXPORT DOCUMENTS CLERK) HIV-1/HIV-2 ANTIBODY Non-Reacti ve Non-Reacti ve 08/25/2022 2:03 AM EXPORT DOCUMENTS CLERK [facility] TR[facility] LAB[facility] Comment:HIV-1 p24 and HIV-1/ HIV-2 Ab not detected. Blood BLOOD SPECIMEN / Unknown Venipuncture / Unknown 08/23/2022 9:34 AM EXPORT DOCUMENTS CLERK 08/23/2022 9:35 AM EXPORT DOCUMENTS CLERK Laly Bowles MD SEND OUTS Final Result Performing Organization Address [facility] Co de Phone Number [facility] [address] [place] [address], [place] * XR MAMMO BILAT SCREENING (06/10/2019 10:06 AM CDT) Anatomical Region Laterality Modality BREASTS, Breast Left, Breast Right Bilateral Mammography Impressions 06/10/2019 12:37 PM CDT There is no radiographic evidence for malignancy. Recommend annual mammograms. A lay language report of this examination will be provided to the patient. MAMMOGRAM ASSESSMENT: ACR 1 Negative Narrative 06/10/2019 12:37 PM CDT XR MAMMO BILAT SCREENING [[id number]] CLINICAL HISTORY: This is an asymptomatic 59 y.o. patient. INDICATION FOR EXAM: Mammogram Screening. TECHNIQUE: CC & MLO views were obtained. This digital study was evaluated with the assistance of Computer-Aided Detection. COMPARISON FILM: Yes 05/20/18 [facility] 05/18/17 [facility] FINDINGS: Mammographically, the breast tissue has scattered fibroglandular densities. There are no dominant masses, suspicious micro calcifications or areas of architectural distortion. us Laly Bowles MD MAMMO Final Result * ANTI HCV (06/26/2018 7:40 AM CDT) HEPATITIS C ANTIBODY Non-React antonio Non-React antonio 06/26/2018 2:06 PM CDT [facility] Comment:Antibodies to HCV no t detected; does not exclude the possibility of exposure to HCV. Blood BLOOD SPECIMEN / Unknown Venipuncture / Unknown 06/26/2018 7:40 AM CDT 06/26/2018 8:18 AM CDT us Laly Bowles MD SEND OUTS Final Result [facility] [address] [place] [address], from Last 3 Months or Most Recently Relevant to Health Maintenance Insurance [facility] MEDICARE ADVANTAGE MR Care Teams Neurology Tech Relationship Specialty Start Date End Date Votel, Elieser Vaughan MD [address] [place] [address] PCP - General Family Practice 09/04/24
--- NOTE | 2024-10-14 16:05 | ED.GENADULT ---
HPI - General Adult General Chief complaint: Shortness of Breath/Dyspnea Stated complaint: SOB, PCP wants heart checked Time Seen by Provider: 10/14/24 16:01 History of Present Illness HPI narrative: Pt reports early August got cold/cough symptoms. Was seen for that due to severe cough and SOB. Nebs, pred, and abx were prescribed. Symptoms improved with these meds but once meds were completed, symptoms returned and continued. Was seen a few weeks later and given a longer rx of medications because I'm a smoker. Pt has completed these medications as well and improved, but now that meds are completed continues to feel SOB and a pressure on her chest. SOB is worse with exertion. PCP today recommended come to ER for eval of these symptoms, PCP stated concern of pt possibly having heart issues. Pt speculates that perhaps these symptoms are happening because she has quit smoking recently. 64-year-old woman presenting to the emergency department with concern of shortness of breath. Apparently was recommended by her primary care provider to present to the emergency department for a ?heart workup?. Had cough and cold symptoms beginning early August seen in this emergency department on September 03 2020 for and diagnosed with cough and wheeze. Given a brief course of prednisone Zithromax since and albuterol inhaler. She has used albuterol head other prior to this and does find it temporarily helpful sometimes. Return to the emergency department September 27 with worsening respiratory symptoms and tightness and wheezing. Did have x-ray and without infiltrate. Given a longer course of prednisone and given a Combivent inhaler which I is not clear to me that she is actually been taking. Understandably recommended for pulmonary function tests which apparently now rescheduled for the week of November. Went to see primary care provider at the end of this last week still with exertional dyspnea. She had been a long-term smoker and quit in early mid August when got sick. She continues to feel a tightness in her chest worse on exertion but particularly short of breath with exertion. Went for a walk this very cold day today and would normally she said have used her albuterol inhaler at this point. Admittedly since quitting smoking she has gained some maybe 5 lb she thinks. Related Data Previous Rx's ?Medication ?Instructions ?Recorded albuterol sulfate 90 mcg/actuation 1 inh inhalation QID PRN shortness 12/11/24 aerosol inhaler of breath or wheezing #8.5 grams Allergies Allergy/AdvReac Type Severity Reaction Status Date / Time No Known Drug Allergies Allergy Verified 09/03/24 01:30 Review of Systems Status of ROS: Reports: 6 or more systems reviewed and unremarkable except as noted in History and below [facility] Social History Smoking Status: Former smoker service: No Exam Narrative: Exam Narrative: Pleasant. NAD. Pleasantly talkative. Easily complete sentences. Does not appear to be in distress. Chest discomfort is not reproducible to palpation over the chest. Lungs with trace and expiratory wheeze. I can imagine mildly prolonged expiratory phase. Heart in regular rate rhythm without murmur rub or gallop. Abdomen is protuberant soft nontender. Extremities are well perfused. She has no peripheral edema. Const: Vital Signs, click to edit/add: Vital Signs - 24 hr 10/14/24 15:56 Temperature 97.1 F L Pulse Rate [Pulse Oximeter] 88 Respiratory Rate 20 Blood Pressure [Ri ght Upper Arm] 170/102 H Pulse Oximetry 96 Oxygen Delivery Me thod Room Air Documenting provider has reviewed patient's vital signs: yes Course Vital Signs Vital signs: Initial Vital Signs Temperature 97.1 F L 10/14/24 15:56 Temperature Source Temporal Artery Scan 10/14/24 15:56 Pulse Rate 88 10/14/24 15:56 Respiratory Rate 10/14/24 15:56 Blood Pressure 170/102 H 10/14/24 15:56 Blood Pressure Mean 124 H 10/14/24 15:56 Blood Pressure Position Sitting 10/14/24 15:56 Pulse Oximetry 96 10/14/24 15:56 Oxygen Delivery Method Room Air 10/14/24 15:56 Vital Signs Temperature 97.1 F L 10/14/24 15:56 Pulse Rate 88 10/14/24 15:56 Respiratory Rate 20 10/14/24 15:56 Blood Pressure 170/102 H 10/14/24 15:56 Pulse Oximetry 96 10/14/24 15:56 Oxygen Delivery Method Room Air 10/14/24 15:56 Temperature 97.1 F L 10/14/24 15:56 Pulse Rate 88 10/14/24 15:56 Respiratory Rate 10/14/24 15:56 Blood Pressure 170/102 H 10/14/24 15:56 Pulse Oximetry 96 10/14/24 15:56 Oxygen Delivery Method Room Air 10/14/24 15:56 Medical Decision Making MDM Narrative Medical decision making narrative: I do suspect that emphysema/COPD is the primary issue here. EKG independently reviewed by me shows normal sinus rhythm at a rate of 80. No ischemic changes. Normal T and P waves. No evidence of cardiomegaly here on the EKG Trying to reach out to primary care provider to see what more he might like us to do. Can initiate basic laboratory evaluation and possibly arrange for stress testing. With likely lung disease can not do Lexiscan with concern of bronchospasm probably. Perhaps dobutamine stress test. I did speak with primary care provider. Apparently Ms. Lynch had call asking for refill of prednisone as she had mentioned to me that was feeling better while she is taking prednisone. She had been also complaining of some epigastric pain hence the recommendation for evaluation in the emergency department with potentially unstable angina. I did discuss these symptoms further with Ms. Lynch. She reports also not taking the Combivent regularly may be when she was short of air not more than once or twice a day and not every day. And that also the albuterol seems to cause some indigestion or heartburn. This however is also taken when she is symptomatic. I think it is hard to separate this still from potential cardiac disease but that most likely pulmonary disease is the source of her dyspnea. No further events during time in the emergency department. Stable vitals. Labs are reassuring. Did discuss with our care team here arranging for follow-up stress test. However given underlying pulmonary disease, recommendations are to do that through primary care clinic. Pulmonary function testing is also pending. See patient discharge plan for further discussion Your heart tests were normal today. Please message your primary care provider to schedule the appropriate next steps in evaluation of your heart. Return for marked increase in persistent chest tightness/pain or shortness of breath. Please restart the Combivent as prescribed which I see was indeed prescribed as 1 puff 4 times daily. Be sure to rinse your mouth after inhalation. Do give this another try. The albuterol inhaler then is for breakthrough wheeze or shortness of breath. Prescribing a course of prednisone from [facility] has discussed Take the prednisone as 60 mg for the 1st dose/day; then 40 mg daily for 3 days, then 20 mg daily for 4 days. There is extra prednisone in this quantity as prescribed. Medical Records Medical records reviewed: Yes I reviewed the patient's medical records Lab Data Lab results reviewed: Yes I reviewed the patient's lab results Labs: Lab Results 10/14/24 Range/Units 17:55 WBC 11.54 H (4.50-11.00) K/uL RBC 4.53 (4.00-5.20) m/uL Hgb 14.0 (12.0-16.0) gm/dL Hct 41.5 (33.0-51.0) % MCV 92 (80-100) fL MCH 31 (26-34) pg MCHC 34 (32-36) gm/dL RDW Coeff of Bassem 12.2 (11.5-15.5) % Plt Count 237 (140-440) K/uL Neut % (Auto) 47.3 (42.0-72.0) % Lymph % (Auto) 36.3 (20-44) % Sauk % (Auto) 9.3 (0.0-11.0) % Eos % (Auto) 6.3 (0.0-7.0) % Baso % (Auto) 0.6 (0.0-3.0) % Neut # (Auto) 5.50 (1.7-7.0) K/uL Lymph # (Auto) 4.20 H (0.90-2.90) K/uL Sauk # (Auto) 1.10 H (0.00-0.90) K/UL Eos # (Auto) 0.70 H (0.00-0.50) K/uL Baso # (Auto) 0.10 (0.00-0.30) K/uL Abs Immat Gran (auto) 0.00 (0.00-0.30) K/uL Imm/Tot Granulo (auto) 0.2 % Sodium 138 (135-149) mmol/L Potassium 4.1 (3.6-5.1) mmol/L Chloride 104 (96-114) mmol/L Carbon Dioxide 28 (20-32) mmol/L Anion Gap 6 L (7-15) mEq/L BUN 13 (7-30) mg/dL Creatinine 0.7 (0.5-1.5) mg/dL Estimated Creat Clear 48.43 Estimated GFR 96 ml/min Glucose 113 (60-115) mg/dL Calcium 9.5 (8.4-10.6) mg/dL Troponin I < 0.01 L (0.01-0.04) ng/mL NT-Pro-B Natriuret Pep 61 pg/mL ECG Data Attestation: I personally reviewed and interpreted this ECG as follows: (Normal sinus rhythm. Rate of 80.) Discharge Plan Discharge Clinical Impression: Wheeze, Shortness of breath Patient Disposition: Home, Self-Care Condition: Stable Instructions: Wheezing (ED), Shortness of Breath (ED) Additional Instructions: Your heart tests were normal today. Please message your primary care provider to schedule the appropriate next steps in evaluation of your heart. Return for marked increase in persistent chest tightness/pain or shortness of breath. Please restart the Combivent as prescribed which I see was indeed prescribed as 1 puff 4 times daily. Be sure to rinse your mouth after inhalation. Do give this another try. The albuterol inhaler then is for breakthrough wheeze or shortness of breath. Prescribing a course of prednisone from [facility] has discussed Take the prednisone as 60 mg for the 1st dose/day; then 40 mg daily for 3 days, then 20 mg daily for 4 days. There is extra prednisone in this quantity as prescribed. Prescriptions: No Action albuterol sulfate 90 mcg/actuation HFA aerosol inhaler 1 inh inhalation QID PRN (Reason: shortness of breath or wheezing) Qty: 8.5 0RF Follow Up/Referrals: Elieser Nielsen MD [Primary Care Provider] - Stand Alone Forms: PresentationTube Info Instructions
--- OUTSIDE RECORDS SUMMARY | 2024-10-14 16:37 | XMS_ITS | Clinical Summary ---
Author Organization [employer] [facility] Address [place], [place] [address] Care Team Providers Care Sandwich Peddler Name Role Phone VotelElieser MD Primary Care [...] 5 Active guaFENesin SR (MUCINEX) 1,200 mg [id number] :Bronchitis Take 1 tablet by mouth every [...] Department Care Team Description 10/14/2024 Nurse Triage [facility] [address] [place] [address] Elieser Nielsen MD requesting clal (Shortness of breath and chest tightness with rest or exertion. Wants something RX) 10/08/2024 12:50 PM BLADE BALANCER Office Visit [facility] [address] [place] [address] Elieser Nielsen MD ER Follow up ([place], 09/27/24, SOB, cough) 10/08/2024 Travel 09/27/2024 Orders Only [facility] Scanner 1 scan: (1-Ord) MANI, XR CHEST 1V PORTABLE, 09/27/2024 09/27/2024 Nurse Triage [facility] [address] [place] [address] Elieser Nielsen MD Breathing Problem 09/22/2024 Telephone [place] [address] [place] [address] Elieser Nielsen MD FYI (Medicare Wellness Visit) 09/18/2024 Telephone [facility] [address] [place] [address] Elieser Nielsen MD Medication Management (Nicotine Patches ) 09/04/[address] [place] [address] Votel, Elieser Vaughan MD Questions (Nicotine patch [...] on file Legal Sex Female 5:21 AM BLADE BALANCER Gender Identity Not on file Sexual Orientation Not on file 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 Not on file Not on file Obstetrics History Last Filed Vital Signs Vital Sign Reading Time Taken Comments Blood Pressure 113/72 10/08/2024 12:46 PM BLADE BALANCER Pulse 100 10/08/2024 12:46 PM BLADE BALANCER Temperature 36.9 C (98.4 F) 10/08/2024 12:46 PM BLADE BALANCER Respiratory Rate 20 05/25/2017 8:11 AM CDT Oxygen Saturation 97% 10/08/2024 12:46 PM BLADE BALANCER Inhaled Oxygen Concentration - - Weight 77.2 kg (170 lb 1.6 oz) 10/08/2024 12:46 PM BLADE BALANCER Height 158.5 cm (5' 2.4) 10/08/2024 12:46 PM CS T Body Mass Index 30.71 10/08/2024 12:46 PM BLADE BALANCER Plan of Treatment Upcoming Encounters Date Type Department Care Team (Late st Contact Info) Description 11/27/2024 12:30 PM BLADE BALANCER Office Visit [facility] [address] [facility] [place] [phone] Wagner James MD On license of [facility] [place] [id number] 11/27/2024 2:00 PM BLADE BALANCER Appointment [facility] [address] [place] [address] Health Maintenance Due Date Last Done Comments [...] Diagnosis Comments SCAN-RADIOLOGY REPORT 09/27/2024 12:00 AM BLADE BALANCER ANTI HIV 1/2 Routine 08/23/2022 9:34 AM BLADE BALANCER Screening for HIV (human immunodeficiency virus) LIPID PANEL W REFLEX MEASURED LDL Routine 08/23/2022 9:34 AM BLADE BALANCER Lipid screening XR MAMMO BILAT SCREENING Routine 06/10/2019 10:06 AM CDT Visit for screening mammogram ANTI HCV Routine 06/26/2018 7:40 AM CDT Need for hepatitis C screening test from Last 3 Months or Most Recently Relevant to Health Maintenance Results * SCAN-RADIOLOGY REPORT (09/27/2024 12:00 AM BLADE BALANCER) Anatomical Region Laterality Modality Other us Scanner OTHER Final Result * (ABNORMAL) LIPID PANEL W REFLEX MEASURED LDL (08/23/2022 9:34 AM BLADE BALANCER) CHOLESTEROL,TOTAL 271(H) 100 - 199 mg/dL 08/25/2022 1:42 AM BLADE BALANCER [facility] TRIGLYCERIDES 203(H) <150 mg/dL 08/25/2022 1:42 AM BLADE BALANCER [facility] HDL CHOLESTEROL 55 >40 mg/dL 1:42 AM BLADE BALANCER [facility] NON-HDL CHOLESTEROL 216(H) <145 mg/dl 08/25/2022 1:42 AM BLADE BALANCER [facility] CHOL/HDL RATIO 4.93(H) <4.50 08/25/2022 1:42 AM BLADE BALANCER [facility] LDL CHOLESTEROL 175(H) <=130 mg/dL 08/25/2022 1:42 AM BLADE BALANCER [facility] VLDL CHOLESTEROL 41(H) <=30 mg/dL 08/25/2022 1:42 AM BLADE BALANCER [facility] PROVIDER ORDERED STATUS RANDOM 08/25/2022 1:42 AM [facility] Blood BLOOD SPECIMEN / Unknown Venipuncture / Unknown 08/23/2022 9:34 AM BLADE BALANCER 08/23/2022 9:35 AM BLADE BALANCER Laly Bowles MD CHEMISTRY Final Result [facility] [address] [place] [address], [place] * ANTI HIV 1/2 [[id number]] (08/23/2022 9:34 AM BLADE BALANCER) HIV-1/HIV-2 ANTIBODY Non-Reacti ve Non-Reacti ve 08/25/2022 2:03 AM BLADE BALANCER [facility] Comment:HIV-1 p24 and HIV-1/ HIV-2 Ab not detected. Blood BLOOD SPECIMEN / Unknown Venipuncture / Unknown 08/23/2022 9:34 AM BLADE BALANCER 08/23/2022 9:35 AM BLADE BALANCER Laly Bowles MD SEND OUTS Final Result Performing Organization Address [facility] Co de Phone Number [facility] [address] [place] [address], [place] * XR MAMMO BILAT SCREENING (06/10/2019 10:06 AM CDT) Anatomical Region Laterality Modality BREASTS, Breast Left, Breast Right Bilateral Mammography Impressions 06/10/2019 12:37 PM CDT There is no radiographic evidence for malignancy. Recommend annual mammograms. A lay language report of this examination will be provided to the patient. MAMMOGRAM ASSESSMENT: ACR 1 Negative Narrative 06/10/2019 12:37 PM CDT XR MAMMO BILAT SCREENING [[id number]] CLINICAL HISTORY: This is an asymptomatic 59 y.o. patient. INDICATION FOR EXAM: Mammogram Screening. TECHNIQUE: CC & MLO views were obtained. This digital study was evaluated with the assistance of Computer-Aided Detection. COMPARISON FILM: Yes 05/20/18 [facility] 05/18/17 [facility] FINDINGS: Mammographically, the breast tissue has scattered fibroglandular densities. There are no dominant masses, suspicious micro calcifications or areas of architectural distortion. us Laly Bowles MD MAMMO Final Result * ANTI HCV (06/26/2018 7:40 AM CDT) HEPATITIS C ANTIBODY Non-React antonio Non-React antonio 06/26/2018 2:06 PM CDT [facility] Comment:Antibodies to HCV no t detected; does not exclude the possibility of exposure to HCV. Blood BLOOD SPECIMEN / Unknown Venipuncture / Unknown 06/26/2018 7:40 AM CDT 06/26/2018 8:18 AM CDT us Laly Bowles MD SEND OUTS Final Result [facility] [address] [place] [address], from Last 3 Months or Most Recently Relevant to Health Maintenance Insurance [facility] MEDICARE ADVANTAGE MR Care Teams Sandwich Peddler Relationship Specialty Start Date End Date Votel, Elieser Vaughan MD [address] [place] [address] PCP - General Family Practice 09/04/24
[2024-10-14 18:04] LABS: Basophils Percent Auto 0.6 % (0.0-3.0); Eosinophils Percent Auto 6.3 % (0.0-7.0); Hematocrit 41.5 % (33.0-51.0); Immature Granulocytes Pct Auto 0.2 %; Lymphocytes Percent Auto 36.3 % (20-44); Mean Corpuscular HGB Conc 34 gm/dL (32-36); Mean Corpuscular Hemoglobin 31 pg (26-34); Mean Corpuscular Volume 92 fL (80-100); Monocytes Percent Auto 9.3 % (0.0-11.0); Neutrophils Percent Auto 47.3 % (42.0-72.0); Platelet Count* 237 K/uL (140-440); RDW Coefficient of Variation % 12.2 % (11.5-15.5); Red Blood Count 4.53 m/uL (4.00-5.20); White Blood Count* 11.54 K/uL (4.50-11.00)
[2024-10-14 18:07] LABS: Slide Review Reflex No
[2024-10-14 18:19] LABS: Chloride* 104 mmol/L (96-114); Potassium* 4.1 mmol/L (3.6-5.1); Sodium* 138 mmol/L (135-149)
[2024-10-14 18:22] LABS: Anion Gap 6 mEq/L (7-15); Blood Urea Nitrogen* 13 mg/dL (7-30); Carbon Dioxide* 28 mmol/L (20-32); Creatinine* 0.7 mg/dL (0.5-1.5); Est. Creatinine Clearance* 48.43; Estimated Glomerular Filt Rate 96 ml/min; Glucose* 113 mg/dL (60-115)
[2024-10-14 18:23] LABS: Calcium* 9.5 mg/dL (8.4-10.6)
[2024-10-14 18:34] LABS: NT Pro B Type NatriureticPept* 61 pg/mL; Troponin I* < 0.01 ng/mL (0.01-0.04)
== END 2024-10-14 18:57 | disposition home or self-care (01) ==
PROVIDERS: Emergency Provider Family Medicine; PCP Family Medicine
DX: R06.02 Shortness of breath (principal); R06.2 Wheezing
CPT/HCPCS: 36415; 80048; 83880; 84484; 85025; 99284